=== PATIENT | female | born 1975 | race Caucasian/White ===

== ENCOUNTER 2020-11-17 00:31 | Emergency (ER) | payer OTHER, SELFPAY ==
[2020-10-22 16:11] VITALS: BMI 40.2
[2020-11-17] VITALS (7 sets, daily range): BP systolic 108–139; BP diastolic 49–95; PULSE 71–107; RESP 12–22; TEMP 36.5; O2SAT 96–100; BMI 40.0
--- NOTE | 2020-11-17 00:45 | ED.VIS.GEN ---
History of Present Illness Chief Complaint: Upper Extremity Injury Informant: Patient Onset: Today Current Severity: Moderate Maximum Severity: Severe Narrative: Patient presents with left wrist injury. Patient tripped and fell landing on her left wrist. She states she did break this wrist previously in high school. She did not require surgery at that time. She is right-hand dominant. She denies any other injury from her fall. - Past Medical History (1) Hypertension Status: Chronic (2) Anxiety and depression Status: Chronic Past Medical History - Allergies and Home Meds Allergies/Adverse Reactions: Allergies No Known Allergies Allergy (Verified 11/17/20 00:32) Primary Care Physician: Oleg Contreras DO [STAFF PHYSICIAN] - 1 Day Prior records reviewed: Yes Lives: With Family Smoking Status: Current every day smoker Alcohol: Occasional Review of Systems General: Denies: Chills, Fever Eyes: Denies: Visual changes - bilaterally ENT: Denies: Bilateral ear pain Cardiovascular: Denies: Chest pain Respiratory: Denies: Dyspnea, Cough Gastrointestinal: Denies: Abdominal pain, Vomiting, Diarrhea Musculoskeletal: Reports: Extremity Pain Neurological: Denies: Headache Hematologic: Denies: Easy bruising, Easy bleeding Allergy: Denies: Uticaria Physical Exam Vital Signs/Narrative: Vital Signs Temp Pulse Resp BP Pulse Ox 11/17/20 00:32 97.7 F L 98 19 H 128/95 H 97 Inital Vital Signs reviewed: Yes General: Well nourished, Well developed Head: Normocephalic ENT: Moist mucous membranes Neck: - - No C-spine tenderness. Cardiovascular: Regular rate, Regular rhythm Respiratory: No distress, CTA bilaterally Abdomen: Soft, Nontender Extremities: - - Left wrist deformity. No open wounds. Palpable radial pulse. Patient able to wiggle fingers. Neurological: Alert, Oriented x3 Psychological: Normal affect Diagnostic/Tx/Re-eval Impressions Wrist X-Ray 11/17/20 03:00 IMPRESSION: Comminuted fracture of the distal radius with intra-articular involvement. Substantially improved alignment compared to previous study. Electronically Signed: Que Alexis MD at 4:30 EDT , Service support , 11/17/20 01:14 Wrist min 3 Views [RAD] Stat 11/17/20 03:00 Wrist 2 Views [RAD] Stat IMPRESSION: Comminuted fracture of the distal radius with intra-articular involvement. Substantially improved alignment compared to previous study. - Medical Decision Making Patient has obvious deformity of the left wrist. IV line is started and she is given morphine and Zofran. X-rays do reveal displaced distal radius fracture. Images are reviewed with Dr. Contreras, on-call for orthopedics. He did feel patient would benefit from attempted reduction to help relieve pressure off the median nerve. Patient was given additional Dilaudid for pain control and consented for procedural sedation. With patient on traffic monitor specialist and nasal cannula oxygen she is administered a total of 100 mg of propofol. Left wrist reduction was performed by myself using traction. AP splint was applied. Repeat x-rays do show improved positioning. Patient had been complaining of numbness to her fingers prior to reduction. After reduction she does note that this is improving. Patient is written for pain medication and will see Dr. Gabriel in the office tomorrow. Procedures - Upper Extremity Splints Upper Extremity Splint: Orthoglass, - - AP Splint Fabrication: Fabricated Location: Left ED Disposition - Plan for ED Patient: Disposition: Home or Assisted Living Diagnosis: Wrist fracture Instructions: ED Fracture, Wrist, General Prescriptions: Oxycodone HCl/Acetaminophen [Percocet 5/325] 1 tablet PO Q6H PRN PRN 5 Days #20 tab PRN Reason: Pain Score 4-10 Prescription Printed Referrals: Oleg Contreras DO [STAFF PHYSICIAN] - 1 Day
[2020-11-17] MEDS: Morphine 4 MG/ML Syringe IV (01:01)
[2020-11-17] MEDS: Ondansetron 4 MG/2 ML Vial IV (01:02)
--- NOTE | 2020-11-17 01:14 | RAD_ITS ---
STUDY: X-RAY - LEFT WRIST REASON FOR EXAM: Female, 45 years old. injury to left wrist from fall today. TECHNIQUE: 3 view(s) of the wrist were obtained. COMPARISON: None. FINDINGS: There is an acute traumatic comminuted fracture of the distal radius involving the metaphysis as well as the articular surface.. There is posterior and proximal displacement of a large bone fragment, which involves a large portion of the articular surface.. There is rotatory displacement of a large bone fragment involving the anterior portion of the articular surface, with angulation convex anteriorly. There is mild medial displacement of the medial bone fragment. Normal visualized distal ulna. Normal radiocarpal articulation. Normal distal radioulnar articulation. Normal carpal bones. Normal carpal articulations. Normal carpometacarpal articulation of the thumb. Normal second through fifth carpometacarpal articulations. Normal visualized metacarpal bones. There is soft tissue swelling. RAD/Wrist min 3 Views IMPRESSION: Placed, comminuted fractures of the distal radius with intra-articular involvement. Electronically Signed: Que Alexis MD at 2:13 EDT , Service support ,
[2020-11-17] MEDS: HYDROmorphone 1 MG/ML Syringe IV (02:12)
[2020-11-17] MEDS: Propofol 200 MG/20 ML Vial IV BOLUS (02:40)
--- NOTE | 2020-11-17 03:00 | RAD_ITS ---
STUDY: X-RAY - LEFT WRIST REASON FOR EXAM: Female, 45 years old. post reduction TECHNIQUE: 2 view(s) of the wrist were obtained. Images were obtained through an overlying fiberglass cast. Current exam is done at 0257 hours. COMPARISON: Exam done at 0104 hours. FINDINGS: There is redemonstration of a comminuted fracture of the distal radius involving the metaphysis as well as the distal articular surface. There is substantially improved alignment compared with previous study. RAD/Wrist 2 Views IMPRESSION: Comminuted fracture of the distal radius with intra-articular involvement. Substantially improved alignment compared to previous study. Electronically Signed: Que Alexis MD at 4:30 EDT , Service support ,
== END 2020-11-17 04:15 | disposition home or self-care (01) ==
PROVIDERS: Emergency Provider Emergency Medicine; PCP Nurse Practitioner
DX: S52.572A Other intraarticular fracture of lower end of left radius, initial encounter for closed fracture (principal); I10 Essential (primary) hypertension; F17.200 Nicotine dependence, unspecified, uncomplicated; Z79.899 Other long term (current) drug therapy; W01.0XXA Fall on same level from slipping, tripping and stumbling without subsequent striking against object, initial encounter; Y93.89 Activity, other specified; Y92.89 Other specified places as the place of occurrence of the external cause; Y99.8 Other external cause status
CPT/HCPCS: 25605; 73100; 73110; 96374; 96375; 99152; 99285; J7030; A4216; J2405

== ENCOUNTER → 2022-01-02 | Outpatient (CLI) | payer OTHER, SELFPAY ==
[2022-01-02 22:59] LABS: Absolute Lymphocyte Count 3.22 X10^3/uL (0.83-4.51); Absolute Neutrophil Count 8.8 X10^3/uL (2.0-7.7); Basophil# 0.09 X10^3/uL; Basophil% 0.7 % (0-1); Eosinophil# 0.22 X10^3/uL; Eosinophils% 1.7 % (0-5); Hematocrit 40.3 % (37-47); Hemoglobin 13.3 g/dL (12.0-15.0); Lymphocyte # 3.22 X10^3/ul (0.83-4.51); Lymphocyte % 24.6 % (19-41); Mean Corpuscular Hgb 29.9 pg (27.0-32.0); Mean Corpuscular Volume 90.6 fL (81-99); Mean Platelet Vol. 10.3 fl (6.2-12.0); Monocyte# 0.76 X10^3/uL; Monocyte% 5.8 % (0-10); NRBC Flagged by Analyzer 0 % (0-5); Neutrophil # 8.78 X10^3/uL (2.7-7.7); Neutrophil % 66.9 % (47-70); Platelet Count 321 K/mm3 (150-450); RBC Distribution Width CV 13.6 % (11.6-14.6); RBC Distribution Width SD 44.5 fl (35.1-43.9); Red Blood Count 4.45 M/mm3 (4.2-5.4); White Blood Count 13.1 K/mm3 (4.4-11.0)
[2022-01-02 23:14] LABS: AST(SGOT) 17 U/L (15-37); Alanine Aminotransfer ALT/SGPT 34 U/L (13-56); Alkaline Phosphatase 65 U/L (45-117); Anion Gap 6 (5-15); BUN 13 mg/dL (7-18); BUN/Creat Ratio 16.6 RATIO (10-20); Calcium,Total 9.1 mg/dL (8.5-10.1); Chloride 103 mmol/L (98-107); Cholesterol 203 mg/dL (200); Creatinine, Serum 0.78 mg/dL (0.55-1.02); EST Glomerular Filtration Rate 84 mL/min (>60); Est Glom Filt Rate - Afr Amer 102 mL/min (>60); Globulin 4.2 g/dL (2.2-4.2); Glucose 86 mg/dL (74-106); High Density Lipoprotein 55 mg/dL; Potassium 4.2 mmol/L (3.5-5.1); Protein, Total 8.2 g/dL (6.4-8.2); Sodium Level 135 mmol/L (136-145); Triglycerides 87 mg/dL; Very Low Density Lipoprotein 17 mg/dL (5-40)
== END | disposition home or self-care (01) ==
PROVIDERS: PCP Nurse Practitioner; Visit Provider Nurse Practitioner
DX: I10 Essential (primary) hypertension (principal)
CPT/HCPCS: 80053; 80061; 85025

== ENCOUNTER → 2024-12-19 | Outpatient (CLI) | payer OTHER, SELFPAY ==
[2024-12-19 22:10] LABS: Absolute Lymphocyte Count 3.19 X10^3/uL (0.83-4.51); Absolute Neutrophil Count 6.9 X10^3/uL (2.0-7.7); Basophil% 0.9 % (0-1); Eosinophil# 0.19 X10^3/uL; Eosinophils% 1.7 % (0-5); Hematocrit 42.5 % (37-47); Hemoglobin 14.1 g/dL (12.0-15.0); Lymphocyte # 3.19 X10^3/ul (0.83-4.51); Lymphocyte % 28.7 % (19-41); Mean Corp Hgb Conc 33.2 g/dL (32-36); Mean Corpuscular Hgb 30.3 pg (27.0-32.0); Mean Corpuscular Volume 91.4 fL (81-99); Monocyte# 0.72 X10^3/uL; Monocyte% 6.5 % (0-10); NRBC Flagged by Analyzer 0 % (0-5); Neutrophil # 6.87 X10^3/uL (2.7-7.7); Neutrophil % 61.9 % (47-70); Platelet Count 415 K/mm3 (150-450); RBC Distribution Width CV 13.2 % (11.6-14.6); RBC Distribution Width SD 44.3 fl (35.1-43.9); Red Blood Count 4.65 M/mm3 (4.2-5.4); White Blood Count 11.1 K/mm3 (4.4-11.0)
[2024-12-19 22:37] LABS: ALB/GLOB Ratio 1.3 RATIO (0.9-2.4); AST(SGOT) 22 U/L (<=31); Alanine Aminotransfer ALT/SGPT 19 U/L (<=34); Albumin, Serum 4.7 g/dL (3.5-5.0); Alkaline Phosphatase 72 U/L (35-104); Anion Gap 13 (5-15); BUN 12 mg/dL (4-19); BUN/Creat Ratio 13.2 RATIO (10-20); Calcium,Total 9.8 mg/dL (7.6-11.0); Carbon Dioxide 24.6 mmol/L (21.0-32.0); Chloride 100 mmol/L (98-108); Cholesterol 217 mg/dL (<=200); Creatinine, Serum 0.91 mg/dL (0.70-1.20); EST Glomerular Filtration Rate 78 (>60); Follicle Stimulating Hormone 8.6 mIU/mL; Globulin 3.7 g/dL (2.2-4.2); Glucose 82 mg/dL (70-99); High Density Lipoprotein 54 mg/dL; Low Density Lipoprotein Calc. 138 mg/dL; Luteinizing Hormone 8.2 mIU/mL; Potassium 4.1 mmol/L (3.3-5.1); Protein, Total 8.4 g/dL (5.9-8.4); Sodium Level 137 mmol/L (133-145); Total Bilirubin 0.58 mg/dL (0.00-1.30); Triglycerides 124 mg/dL; Very Low Density Lipoprotein 25 mg/dL (5-40); cholesterol:hdl ratio screen 3.99
[2024-12-19 22:48] LABS: CRP 3.98 mg/L (0.0-3.0); Rheumatoid Factor < 10.0 IU/mL (<15)
[2024-12-19 23:28] LABS: Hemoglobin A1c 5.3 % (<=5.6)
[2024-12-21 11:08] LABS: Anti-Centromere B Ab <0.2 AI (0.0-0.9); Anti-Chromatin <0.2 AI (0.0-0.9); Anti-Jo <0.2 AI (0.0-0.9); Anti-Scleroderma-70 AB <0.2 AI (0.0-0.9); Anti-dsDNA Ab 5 IU/mL (0-9); RNP Ab <0.2 AI (0.0-0.9); SJOGREN'S Anti-SS-A test < 0.2 AI (0.0-0.9); SJOGREN'S Anti-SS-B test 0.4 AI (0.0-0.9); Smith Ab <0.2 AI (0.0-0.9)
== END | disposition home or self-care (01) ==
LOC: OLS.AHF 21:54
PROVIDERS: PCP Nurse Practitioner; Visit Provider Nurse Practitioner
DX: I10 Essential (primary) hypertension (principal); F41.9 Anxiety disorder, unspecified; F32.9 Major depressive disorder, single episode, unspecified; F32.81 Premenstrual dysphoric disorder; M25.50 Pain in unspecified joint; M25.529 Pain in unspecified elbow
CPT/HCPCS: 80053; 80061; 83001; 83002; 83036; 84443; 85025; 86140; 86225; 86235; 86431; 86617